=== PATIENT | male | born 1975 | race Two or more races ===

== ENCOUNTER 2017-09-15 11:15 | Emergency (ER) | payer SELFPAY ==
--- NOTE | 2017-09-15 12:00 | EDM.PDOC ---
ED HPI GENERAL MEDICAL PROBLEM - General Chief Complaint: ENT Problem Stated Complaint: DENTAL COMPLAINT Time Seen by Provider: 09/15/17 11:38 Source of Information: Reports: Patient, RN Notes Reviewed - History of Present Illness INITIAL COMMENTS - FREE TEXT/NARRATIVE: 42-year-old male comes in with severe left dental pain. She does have septal bad teeth that have given him trouble occasionally in the past but no severe pain frequently for the past 2-3 days left lower jaw. Been no swelling, no fever or chills. He has recently moved here with his job, does not have an established dentist in this area. Left Oral/Mouth Pain Score (Numeric/FACES): 6 - Related Data Allergies Allergy/AdvReac Type Severity Reaction Status Date / Time procaine [From Novocain] Allergy Hypertensio Verified 09/15/17 11:25 n Home Meds: Home Meds Acetaminophen/HYDROcodone [[place] 325-5 MG] 1 tab PO Q4H PRN #20 tablet 09/15/17 [Rx] Naproxen [Naprosyn] 500 mg PO Q12HR #14 tab 09/15/17 [Rx] Past Medical History - Past Health History Medical/Surgical History: Denies Medical/Surgical History Social & Family History - Tobacco Use Smoking Status *Q: Current Every Day Smoker Years of Tobacco use: 6 Packs/Tins Daily: 0.5 - Caffeine Use Caffeine Use: Reports: Coffee - Recreational Drug Use Recreational Drug Use: No ED ROS ENT - Review of Systems Review Of Systems: See Below Constitutional: Denies: Fever, Chills HEENT: Reports: Dental Pain Respiratory: Denies: Shortness of Breath Cardiovascular: Denies: Chest Pain GI/Abdominal: Denies: Nausea, Vomiting Musculoskeletal: Reports: No Symptoms Skin: Denies: Rash, Erythema Neurological: Reports: No Symptoms ED EXAM, ENT - Physical Exam Exam: See Below General Appearance: Alert, Mild Distress Mouth/Throat: Dental Pain (He has severe decay of all 3 left lower molars with the first and second molars completely decayed down to the gumline, moderate decay of the third remaining posterior molar. No visible gum swelling or drainage.). No: Throat Swelling, Tonsillar Erythema Head: Facial Tenderness. No: Facial Swelling Neck: Supple (Left jaw). No: Lymphadenopathy (L), Lymphadenopathy (R) Respiratory/Chest: No Respiratory Distress, Lungs Clear Cardiovascular: Regular Rate, Rhythm Neurological: Alert, Oriented Skin: Warm, Dry, Normal Color, No Rash Course - Vital Signs Last Recorded V/S: Last Vital Signs Temp 98.1 F 09/15/17 11:22 Pulse 96 09/15/17 11:22 Resp 18 09/15/17 11:22 BP 155/101 H 09/15/17 11:22 Pulse Ox 99 09/15/17 11:22 Departure - Departure Time of Disposition: 11:55 Disposition: Home, Self-Care 01 Condition: Fair Clinical Impression: Pain due to dental caries - Discharge Information Prescriptions: Naproxen [Naprosyn] 500 mg PO Q12HR #14 tab Acetaminophen/HYDROcodone [[place] 325-5 MG] 1 tab PO Q4H PRN #20 tablet PRN Reason: Pain Instructions: Dental Abscess Referrals: PCP,None [Primary Care Provider] - Forms: ED Department Discharge Additional Instructions: Naprosyn 500 mg twice daily for pain and inflammation, amoxicillin antibiotic 1000 mg twice daily for 1 week, Tylenol 2-3 times daily for mild to moderate discomfort or hydrocodone hydrocodone pain medication every 4-6 hours if needed for severe pain, do not take Tylenol and hydrocodone same time, do not drive or work when taking hydrocodone. See dentist as soon as possible. Consider [facility] who may have availability to see you more quickly.
== END 2017-09-15 12:15 | disposition home or self-care (01) ==
LOC: JD.ED 11:15
DX: K02.9 Dental caries, unspecified (principal); F17.210 Nicotine dependence, cigarettes, uncomplicated; Z88.4 Allergy status to anesthetic agent
CPT/HCPCS: 99282; 99283

== ENCOUNTER 2017-09-19 22:05 | Emergency (ER) | payer SELFPAY ==
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
== END 2017-09-20 01:15 | disposition home or self-care (01) ==
LOC: JD.ED 22:05
DX: K02.9 Dental caries, unspecified (principal); F17.210 Nicotine dependence, cigarettes, uncomplicated; Z88.8 Allergy status to other drugs, medicaments and biological substances
CPT/HCPCS: 99283